=== PATIENT | female | born 1990 | race Caucasian/White ===

== ENCOUNTER 2018-03-14 20:01 | Emergency (ER) | payer OTHER ==
[~2018-03-14] VITALS: Ht 170.2 cm; Wt 90.7 kg
[2018-03-14] MEDS ORDERED: PRENATAL + DHA1 EAC1 (20:36)
== END 2018-03-14 21:28 | disposition home or self-care (01) ==
LOC: ER 20:01
DX: K59.09 Other constipation (principal)

== ENCOUNTER 2018-04-21 10:19 | Inpatient (IN) | payer OTHER ==
[~2018-04-21] VITALS: Ht 172.7 cm; Wt 93.0 kg
[~2018-04-21 10:19] MED LIST: PRENATAL + DHA1 EAC1
== END 2018-04-25 14:21 | DRG 832 ==
LOC: ER 10:19 → OB/GYN 16:24
PROC: BY4CZZZ Ultrasonography of Second Trimester, Single Fetus (ICD-10-PCS; principal; 2018-04-21)
PROC: 4A1HXCZ Monitoring of Products of Conception, Cardiac Rate, External Approach (ICD-10-PCS; 2018-04-21)
PROC: 4A033R1 Measurement of Arterial Saturation, Peripheral, Percutaneous Approach (ICD-10-PCS; 2018-04-21)
PROC: 3E0F7GC Introduction of Other Therapeutic Substance into Respiratory Tract, Via Natural or Artificial Opening (ICD-10-PCS; 2018-04-21)
DX: O99.512 Diseases of the respiratory system complicating pregnancy, second trimester (principal); O98.512 Other viral diseases complicating pregnancy, second trimester; J09.X2 Influenza due to identified novel influenza A virus with other respiratory manifestations; B34.9 Viral infection, unspecified; Z34.02 Encounter for supervision of normal first pregnancy, second trimester; O21.8 Other vomiting complicating pregnancy

== ENCOUNTER 2018-09-02 10:07 | Inpatient (IN) | payer OTHER ==
[~2018-09-02] VITALS: Ht 170.2 cm; Wt 98.9 kg
[2018-09-02] MEDS ORDERED: IRON325 MG PO (11:42)
[2018-09-04] MEDS ORDERED: PREPLUS CA-FE1 EACH PO (11:13)
[2018-09-04] MEDS ORDERED: KAOPECTATE240 MG PO (11:13)
[2018-09-04] MEDS ORDERED: IBUPROFEN800 MG PO (11:13)
== END 2018-09-04 12:20 | disposition home or self-care (01) | DRG 805 ==
LOC: LDR 10:07 → OB/GYN 14:10
PROVIDERS: ADMIT Obstetrics & Gynecology
PROC: 10E0XZZ Delivery of Products of Conception, External Approach (ICD-10-PCS; principal; 2018-09-02)
PROC: 0KQM0ZZ Repair Perineum Muscle, Open Approach (ICD-10-PCS; 2018-09-02)
PROC: 4A1HXCZ Monitoring of Products of Conception, Cardiac Rate, External Approach (ICD-10-PCS; 2018-09-02)
DX: O70.1 Second degree perineal laceration during delivery (principal); O60.14X0 Preterm labor third trimester with preterm delivery third trimester, not applicable or unspecified; Z37.0 Single live birth; Z3A.36 36 weeks gestation of pregnancy